=== PATIENT | female | born 1990 | race Two or more races ===

== ENCOUNTER 2024-04-30 10:47 | Inpatient (IN) | payer OTHER ==
[~2024-04-30] VITALS: Ht 160 cm; Wt 118.0 kg
[2024-04-30 11:29] LABS: Basophils # (auto) 0.1 10 ^3/uL (0-0.2); Basophils % (auto) 0.5 % (0.0-2.0); Eosinophils # (auto) 0.2 10 ^3/uL (0-0.8); Eosinophils % (auto) 1.2 % (0.0-7.0); Hematocrit 49.4 % (36.0-46.0); Hemoglobin 16.6 g/dL (12.2-16.2); Lymphocytes # (auto) 2.4 10 ^3/uL (0.4-5.4); Lymphocytes % (auto) 16.1 % (10.0-50.0); Mean Corpuscular Hemoglobin 33.4 pg (28.0-32.0); Mean Corpuscular Hgb Conc. 33.5 g/dL (32.0-36.0); Mean Corpuscular Volume 99.6 fL (80.0-100.0); Monocytes # (auto) 0.8 10 ^3/uL (0-1.3); Monocytes % (auto) 5.1 % (0.0-12.0); Neutrophils # (auto) 11.7 10 ^3/uL (1.6-8.6); Neutrophils % (auto) 77.1 % (37.0-80.0); Nucleated Red Blood Cells % 0.1 %; Red Blood Cells 4.96 10^6/uL (4.0-5.20); Red Cell Distribution Width 13.5 % (11.8-14.3); White Blood Cell 15.1 10^3/uL (4.4-10.8)
[2024-04-30 11:39] LABS: Chloride 105 mmol/L (98-107); Potassium 4.5 mmol/L (3.5-5.1); Sodium 136 mmol/L (136-145)
[2024-04-30 11:40] LABS: Anion Gap 8 (5-15); Carbon Dioxide 23 mmol/L (20-30)
[2024-04-30 11:41] LABS: Calcium 9.8 mg/dL (8.7-10.4)
[2024-04-30] MEDS ORDERED: metroNIDAZOLE 500MG/100ML 100 ML IV ONE (11:45)
[2024-04-30 11:46] LABS: Glucose 167 mg/dL (74-106)
[2024-04-30 11:50] LABS: BUN/Creatinine Ratio 8.2 (10.0-20.0); Blood Urea Nitrogen < 5 mg/dL (9-23)
[2024-04-30] MEDS: cefTRIAXone 1GM/50ML D5W 50 ML IV ONE ×2 (12:16→17:09)
[2024-04-30] MEDS: SODIUM CHLORIDE 0.9% 1,000 ML IVB ONE (12:18)
[2024-04-30] MEDS: ONDANSETRON HCL 4 MG/2 ML VIAL IV ONE (12:18)
[2024-04-30 12:42] VITALS: PULSE 85; RESP 19; O2SAT 97
[2024-04-30] MEDS: metroNIDAZOLE 500 MG TAB PO ONE (12:54)
[2024-04-30] MEDS: MORPHINE SULFATE 4 MG/ML SYR/VIAL IV ONE (13:23)
[2024-04-30] MEDS ORDERED: NITROGLYCERIN 0.4 MG SL TAB SL PRN ×2 (13:45→16:00)
[2024-04-30] MEDS ORDERED: MORPHINE SULFATE INJ 2 MG/ml SYRG IV PRN ×2 (13:45→16:00)
[2024-04-30] MEDS ORDERED: ONDANSETRON HCL 4 MG/2 ML VIAL IV PRN (16:00)
[2024-04-30 16:55] LABS: Urine Bacteria None Seen /hpf (None Seen)
[2024-04-30 17:06] LABS: Urine Blood 1+ /uL (Negative); Urine Clarity Turbid (Clear); Urine Protein, UAD 1+ (Negative); Urine Specific Gravity 1.015 (1.001-1.035); Urine Urobilinogen Normal (Negative); Urine WBC 483 /hpf (0 - 5); Urine WBC Clumps PRESENT /hpf (None Seen); Urine pH 6.5 (5.0-9.0)
[2024-04-30 17:08] LABS: Urine Color Yellow (Yellow)
[2024-04-30] MEDS: PANTOPRAZOLE 40 MG/10 ML VIAL INJ IV ONE (17:14)
[2024-04-30] MEDS ORDERED: LISI20TA56 PO (17:45)
[2024-04-30] MEDS: LORazepam 0.5 MG TAB ONE (18:39)
[2024-04-30 19:25] VITALS: PULSE 96; RESP 18; O2SAT 98
[2024-04-30] MEDS: SODIUM CHLORIDE 0.9% 1,000 ML IV SCH (20:29)
[2024-04-30] MEDS ORDERED: PROP60CA34 PO (23:40)
[2024-05-01 01:00] VITALS: BP 154/90; PULSE 94; RESP 18; TEMP 98.2; O2SAT 98
[2024-05-01 05:00] VITALS: BP 120/68; PULSE 89; RESP 18; TEMP 98.4; O2SAT 96
[2024-05-01 06:08] LABS: Basophils # (auto) 0.1 10 ^3/uL (0-0.2); Basophils % (auto) 0.7 % (0.0-2.0); Eosinophils # (auto) 0.1 10 ^3/uL (0-0.8); Eosinophils % (auto) 1.1 % (0.0-7.0); Hematocrit 46.4 % (36.0-46.0); Hemoglobin 15.6 g/dL (12.2-16.2); Lymphocytes # (auto) 3.2 10 ^3/uL (0.4-5.4); Lymphocytes % (auto) 26.5 % (10.0-50.0); Mean Corpuscular Hemoglobin 33.6 pg (28.0-32.0); Mean Corpuscular Hgb Conc. 33.7 g/dL (32.0-36.0); Monocytes # (auto) 0.7 10 ^3/uL (0-1.3); Monocytes % (auto) 5.6 % (0.0-12.0); Neutrophils # (auto) 8.1 10 ^3/uL (1.6-8.6); Neutrophils % (auto) 66.1 % (37.0-80.0); Nucleated Red Blood Cells % 0.1 %; Red Blood Cells 4.64 10^6/uL (4.0-5.20); White Blood Cell 12.2 10^3/uL (4.4-10.8)
[2024-05-01 06:09] LABS: Alanine Aminotransferase 99 U/L (7-40); Alkaline Phosphatase 159 U/L (46-116); Anion Gap 7 (5-15); Aspartate Aminotransferase 100 U/L (13-40); Calcium 9.6 mg/dL (8.7-10.4); Carbon Dioxide 24 mmol/L (20-30); Chloride 105 mmol/L (98-107); Glucose 99 mg/dL (74-106); Potassium 3.3 mmol/L (3.5-5.1); Sodium 136 mmol/L (136-145)
[2024-05-01 06:10] LABS: Albumin 4.5 g/dL (3.2-4.8); Bilirubin, Total 1.2 mg/dL (0.2-1.0)
[2024-05-01 06:24] LABS: BUN/Creatinine Ratio 9.6 (10.0-20.0); Blood Urea Nitrogen < 5 mg/dL (9-23)
[2024-05-01 08:37] VITALS: BP 138/94; PULSE 96; RESP 17; TEMP 98.7; O2SAT 97
[2024-05-01] MEDS: cefTRIAXone 1GM/50ML D5W 50 ML IV SCH (08:43)
[2024-05-01] MEDS: PANTOPRAZOLE 40 MG/10 ML VIAL INJ IV SCH (08:44)
[2024-05-01] MEDS: LISINOPRIL 20 MG TAB PO SCH (09:16)
[2024-05-01] MEDS: POTASSIUM EFFERVESENT TAB 25 MEQ PO ONE (11:34)
[2024-05-01] MEDS: SODIUM CHLORIDE 0.9% 1,000 ML IV SCH (11:36)
[2024-05-01 13:02] VITALS: BP 138/84; PULSE 88; RESP 17; TEMP 98.7; O2SAT 96
[2024-05-01 16:41] VITALS: BP 133/91; PULSE 82; RESP 17; TEMP 98.7; O2SAT 98
[2024-05-01 21:00] VITALS: BP 143/91; PULSE 84; RESP 18; TEMP 98; O2SAT 93
[2024-05-01] MEDS: LORazepam 0.5 MG TAB PO PRN (22:18)
[2024-05-02] VITALS (8 sets, daily range): BP systolic 111–158; BP diastolic 67–100; PULSE 84–94; RESP 16–19; TEMP 97.5–98.3; O2SAT 94–98
[2024-05-02] MEDS: MORPHINE SULFATE INJ 2 MG/ml SYRG IV PRN (02:36)
[2024-05-02] MEDS ORDERED: HYDROcodone-ACET 7.5/325MG TAB PO PRN (05:45)
[2024-05-02 06:59] LABS: Basophils # (auto) 0.1 10 ^3/uL (0-0.2); Basophils % (auto) 0.6 % (0.0-2.0); Eosinophils # (auto) 0.2 10 ^3/uL (0-0.8); Eosinophils % (auto) 1.5 % (0.0-7.0); Hematocrit 44.8 % (36.0-46.0); Hemoglobin 15.1 g/dL (12.2-16.2); Lymphocytes # (auto) 3.1 10 ^3/uL (0.4-5.4); Lymphocytes % (auto) 24.3 % (10.0-50.0); Mean Corpuscular Hemoglobin 33.6 pg (28.0-32.0); Mean Corpuscular Hgb Conc. 33.6 g/dL (32.0-36.0); Monocytes # (auto) 0.7 10 ^3/uL (0-1.3); Monocytes % (auto) 5.2 % (0.0-12.0); Neutrophils # (auto) 8.9 10 ^3/uL (1.6-8.6); Neutrophils % (auto) 68.4 % (37.0-80.0); Red Blood Cells 4.48 10^6/uL (4.0-5.20); Red Cell Distribution Width 13.3 % (11.8-14.3); White Blood Cell 12.9 10^3/uL (4.4-10.8)
[2024-05-02 07:28] LABS: Alanine Aminotransferase 102 U/L (7-40); Albumin 4.1 g/dL (3.2-4.8); Alkaline Phosphatase 145 U/L (46-116); Anion Gap 10 (5-15); Aspartate Aminotransferase 121 U/L (13-40); Bilirubin, Total 0.9 mg/dL (0.2-1.0); Calcium 9.5 mg/dL (8.7-10.4); Carbon Dioxide 25 mmol/L (20-30); Chloride 103 mmol/L (98-107); Glucose 101 mg/dL (74-106); Potassium 3.5 mmol/L (3.5-5.1); Sodium 138 mmol/L (136-145); Total Protein 7.2 g/dL (5.7-8.2)
[2024-05-02 07:35] LABS: BUN/Creatinine Ratio 11.6 (10.0-20.0); Blood Urea Nitrogen < 5 mg/dL (9-23)
[2024-05-02] MEDS: DOCUSATE SOD 100 MG CAP PO PRN (08:53)
[2024-05-02 08:59] LABS: Hepatitis B Core Total AB Negative (Negative)
[2024-05-02 10:32] LABS: Hepatitis A Total Antibody Positive (Negative); Hepatitis B Surface Antibody Negative (Negative); Hepatitis B Surface Antigen Negative (Negative); Hepatitis C Antibody Negative (Negative)
== END 2024-05-02 21:30 | disposition short-term general hospital (02) | DRG 872 ==
LOC: ER 10:51 → OVERFLOW 13:33 → WEST WING 23:08
PROVIDERS: ADMIT Internal Medicine; ATTEND Internal Medicine
DX: A41.9 Sepsis, unspecified organism (principal); B15.9 Hepatitis A without hepatic coma; Z68.42 Body mass index [BMI] 45.0-49.9, adult; E87.6 Hypokalemia; K21.9 Gastro-esophageal reflux disease without esophagitis; K52.9 Noninfective gastroenteritis and colitis, unspecified; I10 Essential (primary) hypertension; N30.90 Cystitis, unspecified without hematuria; E66.01 Morbid (severe) obesity due to excess calories; Z88.5 Allergy status to narcotic agent; Z90.49 Acquired absence of other specified parts of digestive tract
CPT/HCPCS: 36415; 74176; 76705; 80048; 80053; 81001; 83605; 83690; 84702; 85025; 86704; 86706; 86708; 86803; 87086; 87340; G0378; J2405; J2470